=== PATIENT | female | born 1960 | race Caucasian/White ===

== ENCOUNTER 2016-08-14 08:46 | Emergency (ER) | payer OTHER ==
[~2016-08-14] VITALS: Ht 152.4 cm; Wt 99.8 kg
[~2016-08-14 08:46] MED LIST: ATORVASTATIN CA10 M1; AZITHROMYCIN250 M1 PO; CIPRODEX 0.3%-7.5 ML OTIC; FLONASE ALLERG9.9 ML NAS; GABAPENTIN600 M1 PO; IBUPROFEN600 M1 PO; LEVAQUIN500 M1 PO; MEDROL4 M2 PO; METFORMIN HCL1000 M1 PO; NASONEX0.05 MG/Ac NAS; PROAIR HFA8.5 GM INH; ROBITUSSIN W/CO10 ML PO; TESSALON PERLE100 M1 PO; VITAMIN B COMP1 EACH PO; ZITHROMAX Z-PA250 M1 PO; ZITHROMAX250 M2 PO
[2016-08-14 08:49] VITALS: BP 143/95
== END 2016-08-14 08:54 | disposition admitted as inpatient to this hospital (09) ==
LOC: CANPREER → ERH 08:46
DX: M25.562 Pain in left knee (principal)

== ENCOUNTER → 2018-01-24 | Day surgery (SDC) | payer OTHER ==
[2007-11-25 11:15] VITALS: BP 126/62
[~2018-01-24] MED LIST changes: +DELTASONE20 MG PO; +HYDROXYZINE HCL50 M1 PO; +PREDNISONE10 M2 PO
--- NOTE | 2018-01-24 10:28 | Operative Report ---
Operative/Inv Procedure Report Surgery Date: 01/24/18 Name of Procedure: Cataract extraction with intraocular lens implantation left eye Pre-Operative Diagnosis: Age-related cataract left eye Post-Operative Diagnosis: Same Estimated Blood Loss: none Surgeon/Drying Unit Felting Machine Operator: Elroy Ricardo MD Anesthesia: local monitored anesthesi Complications: None Operative/Procedure Note Note: Preoperatively the patient was noted to have 20/60 vision in the left eye . The risks, benefits, and alternatives to surgery were discussed at length with the patient. Informed consent was obtained. The patient was brought to the operating room where the left eye was prepped and draped in the normal sterile fashion. A speculum was placed on the left eye with good exposure. The axis of the limbal relaxing incision was marked. Using a jefferson blade at 600 depth, an incision spanning 45 degrees was made without complication. A limbal relaxing incision of equal length and depth was made 180 away. A stab incision was made using a paracentesis blade. Intracameral lidocaine was placed. Viscoelastic was used to form the anterior chamber. A clear corneal incision was made using keratome blade. A continuous curvilinear capsulorrhexis was made using a cystotome needle followed by Utrata forceps. There was no extension of the rhexis. Hydrodissection was performed using balanced salt solution. The cataract was removed using a stop and chop technique. Residual cortex was removed using coaxial irrigation and aspiration. The capsule was polished using irrigation and aspiration and the posterior capsule was cleaned using a balanced salt solution jet. There was no residual lens material inside the eye. The capsular bag was reformed using viscoelastic. An intraocular lens [id number] of power 25.5 was verified and confirmed. It was loaded into an injector and injected into the eye. The lens was placed entirely within the capsular bag. Viscoelastic was evacuated using irrigation and aspiration. The wounds were stromally hydrated and the eye filled to physiologic pressure using balanced salt solution. Intracameral cefuroxime was placed. Speculum was removed and a shield was placed on the eye. The patient was brought to the recovery area without incident. Instructions were given to follow-up the next day for routine postoperative care.
== END ==
LOC: STS 02:06
DX: H25.9 Unspecified age-related cataract (principal); E11.9 Type 2 diabetes mellitus without complications; Z79.84 Long term (current) use of oral hypoglycemic drugs; G47.33 Obstructive sleep apnea (adult) (pediatric); F17.200 Nicotine dependence, unspecified, uncomplicated
CPT/HCPCS: J2250; V2632

== ENCOUNTER 2018-01-27 11:29 | Emergency (ER) | payer OTHER ==
[~2018-01-27] VITALS: Ht 152.4 cm; Wt 98.0 kg
[~2018-01-27 11:29] MED LIST changes: -HYDROXYZINE HCL50 M1 PO; -PREDNISONE10 M2 PO
[2018-01-27 11:32] VITALS: BP 132/85
--- NOTE | 2018-01-27 12:03 | ED SKIN/ALLERGY COMPLAINT ---
History of Present Illness General Chief Complaint: Skin Rash/ Abcess Stated Complaint: RASH (SEEN HERE 01/25 FOR SAME) Source: patient Exam Limitations: no limitations Vital Signs & Intake/Output Vital Signs & Intake/Output Vital Signs Date Time Temp Pulse Resp B/P B/P Pulse O2 O2 Flow FiO2 Mean Ox Delivery Rate 01/27 1154 Room Air 01/27 1132 98.0 97 20 132/85 96 Room Air ED Intake and Output 01/28 0000 01/27 1200 Intake Total 0 Output Total Balance 0 Intake, Oral 0 Patient 216 lb Weight Weight Reported by Patient Measurement Method Allergies Coded Allergies: Penicillins (HIVES 08/14/16) Sulfa (Sulfonamide Antibiotics) ("I DONT KNOW" 01/25/18) Reconcile Medications Albuterol Sulfate (Proair Hfa) 8.5 GM HFA.AER.AD 2 PUF INH Q4-6 PRN PRN COPD (Reported) Atorvastatin Calcium (Unknown Strength) TABLET (Unknown Dose) UNKNOWN ( Reported) Azithromycin (Zithromax) 250 MG TABLET 1 DP PO AD BRONCHITIS 2 the first day followed by 1 for days 2-5 Azithromycin 250 MG TABLET 1 TAB PO AD otitis media TAKE 2 TABS ON DAY 1 TAKE 1 TAB ON DAYS 2-5 Benzonatate (Tessalon Perle) 100 MG CAPSULE 1 CAP PO TID PRN COUGH Benzonatate (Tessalon Perle) 100 MG CAPSULE 1 CAP PO TID COUGH Fluticasone Propionate (Flonase Allergy Relief) 9.9 ML SPRAY.SUSP 1 SPRAY KYLE BID PRN CONGESTION Gabapentin 600 MG TABLET 2 TAB PO TID NERVE PAIN (Reported) Hydroxyzine Hydrochloride (Atarax) 50 MG TAB 1 TAB PO TID PRN ITCHING Ibuprofen 600 MG TABLET 1 TAB PO TID PAIN with food Levofloxacin (Levaquin) 500 MG TABLET 1 TAB PO DAILY SINUSITIS/BRONCHITIS Metformin HCl 1,000 MG TABLET 1 TAB PO BID DIABETES (Reported) Methylprednisolone. (Medrol) 4 MG TAB.DS.PK 1 DP PO AD BRONCHITIS 6 on day 1 then reduce by one tablet daily until gone Methylprednisolone. (Medrol) 4 MG TAB.DS.PK 1 DP PO AD WHEEZING 6 on day 1 then reduce by one tablet daily until gone Prednisone 10 MG TABLET 1 DOSE PO ONCE RASH 6 TABS X 2 DAYS 5 TABS X 2 DAYS 4 TABS X 2 DAYS 3 TABS X 2 DAYS 2 TABS X 2 DAYS 1 TAB X 2 DAYS Prednisone (Deltasone) 20 MG TABLET 2 TAB PO DAILY rash Vitamin B Complex 1 EACH CAPSULE 1 CAP PO DAILY SUPPLEMENT (Reported) Triage Note: PT TO ED C/O CONTINUED RASH TO CHEST. WAS SEEN 2 DAYS AGO FOR SAME, WAS GIVEN RX'S. C/O FEELING HOT "I THINK I'M FREAKING MYSELF OUT". Triage Nurses Notes Reviewed? yes Onset: Abrupt Duration: day(s): (3-4), constant, continues in ED Timing: single episode today Severity: moderate, severe Location: torso Possible Factors: no cause identified No Modifying Factors: none Associated Symptoms: rash LMP (ages 10-50): post menopausal : No Patient currently breastfeeds: No HPI: 57 year old female with a history of diabetes presents for reevaluation of an itchy rash. Patient was seen here 2 days ago with a rash on her chest and neck. She was started on 40 mg of prednisone and told to take Benadryl. She started the prednisone 2 days ago and has been taking it as directed. She feels like there is been no improvement. She denies any swelling of the lips tongue or throat no difficulty breathing or difficulty swallowing. Past History Travel History Traveled to [place] past 21 day No Medical History Any Pertinent Medical History? 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 No Review of Systems Review of Systems Constitutional: Reports: no symptoms. EENTM: Reports: no symptoms. Respiratory: Reports: no symptoms. Cardiovascular: Reports: no symptoms. GI: Reports: no symptoms. Genitourinary: Reports: no symptoms. Musculoskeletal: Reports: no symptoms. Skin: Reports: see HPI, rash. Neurological/Psychological: Reports: no symptoms. Hematologic/Endocrine: Reports: no symptoms. Immunologic/Allergic: Reports: no symptoms. All Other Systems: Reviewed and Negative Physical Exam Physical Exam General Appearance: well developed/nourished, no apparent distress, alert, awake Head: atraumatic, normal appearance Eyes: Bilateral: normal appearance, PERRL, EOMI. Ears, Nose, Throat: normal pharynx, normal ENT inspection, hearing grossly normal Neck: normal inspection, supple, full range of motion, NO STRIDOR Respiratory: normal breath sounds, chest non-tender, no respiratory distress, lungs clear Cardiovascular: regular rate/rhythm, normal peripheral pulses Peripheral Pulses: 2+ radial (R), 2+ radial (L) Gastrointestinal: soft, non-tender Back: normal inspection, normal range of motion, no vertebral tenderness Extremities: normal inspection, normal range of motion, no edema Neurologic/Psych: no motor/sensory deficits, awake, alert, oriented x 3, normal gait, normal mood/affect Skin: intact, normal color, warm/dry Skin Problem Location: torso, NECK Skin Problem Character: THERE IS AN ERYTHEMATOUS MACULOPAPULAR SLIGHTLY RAISED RASH TO THE ANTERIOR SUPERIOR CHEST AND NECK. Lymphatic: no anterior cervical gabriela Progress Differential Diagnosis: abscess/cellulitis, allergic reaction, contact dermatitis, drug reaction, erythema multiforme, piyriasis rosea, scarlet fever, urticaria Plan of Care: Current Medications Sig/Vitor Start time Last Medication Dose Stop Time Status Admin Prednisone 20 MG ONCE ONE 01/27 1215 UNVr 01/28 1216 Patient is here for evaluation of a rash. She started 40 mg present 2 days ago without improvement. There is no swelling of the lips tongue or throat. No difficult breathing and difficult swallowing. Patient appears well. She was given additional 20 mg of prednisone for a total of 60 and then she was started on a taper. Also given a prescription for hydroxyzine. Advised to follow-up with a primary care doctor no evidence of anaphylaxis. Discussed return precautions patient agrees the plan Departure Departure Disposition: HOME OR SELF CARE Condition: Stable Clinical Impression Primary Impression: Allergic reaction Qualifiers: Encounter type: initial encounter Qualified Code: T78.40XA - Allergy, unspecified, initial encounter Referrals: Liz Betancourt APRN (PCP/Family) Additional Instructions: Stop taking the original dose of prednisone and start taking the prednisone taper. Use hydroxyzine every 8 hours as needed for itching. Pepcid or Zantac [id number] can also be used as directed. [place] for signs of infection like redness swelling discharge or pain. Also applY nystatin powder as directed. Make a follow-up with your primary care doctor within the next few days for recheck return with any concerns. Monitor your sugars as PREDNISONE will increase them. Departure Forms: Customer Survey General Discharge Information Prescriptions: Current Visit Scripts Prednisone 1 DOSE PO ONCE #1 DP 6 TABS X 2 DAYS 5 TABS X 2 DAYS 4 TABS X 2 DAYS 3 TABS X 2 DAYS 2 TABS X 2 DAYS 1 TAB X 2 DAYS Hydroxyzine Hydrochloride (Atarax) 1 TAB PO TID PRN ITCHING #30 TAB
[2018-01-27] MEDS ORDERED: HYDROXYZINE HCL50 M1 PO (12:04)
[2018-01-27] MEDS ORDERED: PREDNISONE10 M2 PO (12:04)
== END 2018-01-27 12:05 ==
LOC: ERH 11:29
DX: T78.40XA Allergy, unspecified, initial encounter (principal); R21 Rash and other nonspecific skin eruption; E11.9 Type 2 diabetes mellitus without complications; F17.210 Nicotine dependence, cigarettes, uncomplicated; J44.9 Chronic obstructive pulmonary disease, unspecified; Z79.84 Long term (current) use of oral hypoglycemic drugs

== ENCOUNTER 2018-02-05 11:15 | Emergency (ER) | payer OTHER ==
[~2018-02-05] VITALS: Ht 152.4 cm; Wt 93.9 kg
[~2018-02-05 11:15] MED LIST changes: +HYDROXYZINE HCL50 M1 PO; +PREDNISONE10 M2 PO
[2018-02-05 11:43] LABS: ABSOLUTE BASOPHIL COUNT 0.1 /CUMM (0.0-0.2); ABSOLUTE EOSINOPHIL COUNT 0.1 /CUMM (0.0-0.7); ABSOLUTE GRANULOCYTE CT 11.5 /CUMM (1.4-6.5); ABSOLUTE LYMPH COUNT 5.2 /CUMM (1.2-3.4); BASOPHIL % 0.6 % (0.0-2.0); EOSINOPHIL % 0.7 % (0-5); GRANULOCYTE % 64.1 % (42.2-75.2); HEMATOCRIT 52.3 % (37-47); MEAN CORPUSCULAR HGB 30.2 PG (27.0-31.0); MEAN CORPUSCULAR VOLUME 88.8 FL (81.0-99.0); MEAN PLATELET VOLUME 9.6 FL (7.4-10.4); PLATELET COUNT 211 /CUMM (130-400); RBC DISTRIBUTION WIDTH 12.6 % (11.5-14.5); RED BLOOD CELL CT 5.89 /CUMM (4.20-5.40); WHITE BLOOD CELL COUNT 17.9 /CUMM (4.8-10.8)
--- NOTE | 2018-02-05 12:47 | RADIOLOGY REPORT ---
EXAMINATION: XR CHEST CLINICAL INFORMATION: Cough, malaise, presyncope. COMPARISON: Chest done on 11/02/2015. TECHNIQUE: 2 views of the chest were obtained. FINDINGS: There is a 3 to 4 mm radiodensity seen projecting at right upper hemithorax, new since prior study, may represent an artifact, seen only on the frontal projection. Both lung red appear otherwise clear. The cardiomediastinal silhouette is within normal limit. There is no pleural effusion or pneumothorax present. Mild multilevel degenerative spondylosis is seen in the spine, unchanged. The visualized upper abdomen is unremarkable. IMPRESSION: New 3 to 4 mm radiodensity seen projecting at right upper hemithorax laterally, seen only on the frontal projection, may represent an artifact. Otherwise unremarkable.
--- NOTE | 2018-02-05 16:39 | ED GENERAL ADULT ---
History of Present Illness General Chief Complaint: General Adult Stated Complaint: ELEVATED BS,SINUS INFECTION,RASH Source: patient, family Exam Limitations: no limitations Vital Signs & Intake/Output Vital Signs & Intake/Output Vital Signs Date Time Temp Pulse Resp B/P B/P Pulse O2 O2 Flow FiO2 Mean Ox Delivery Rate 02/06 2124 98.0 88 18 137/70 97 Room Air 02/05 1832 79 18 133/75 94 Room Air 02/05 1628 97.9 88 18 130/73 94 Room Air 02/05 1606 98 Room Air 02/05 1123 97.3 87 18 139/83 96 Room Air Allergies Coded Allergies: Penicillins (HIVES 08/14/16) Sulfa (Sulfonamide Antibiotics) ("I DONT KNOW" 01/25/18) Reconcile Medications Albuterol Sulfate (Proair Hfa) 8.5 GM HFA.AER.AD 2 PUF INH Q4-6 PRN PRN COPD (Reported) Atorvastatin Calcium (Unknown Strength) TABLET (Unknown Dose) UNKNOWN ( Reported) Azithromycin (Zithromax) 250 MG TABLET 1 DP PO AD BRONCHITIS 2 the first day followed by 1 for days 2-5 Azithromycin 250 MG TABLET 1 TAB PO AD otitis media TAKE 2 TABS ON DAY 1 TAKE 1 TAB ON DAYS 2-5 Benzonatate (Tessalon Perle) 100 MG CAPSULE 1 CAP PO TID PRN COUGH Benzonatate (Tessalon Perle) 100 MG CAPSULE 1 CAP PO TID COUGH Doxycycline Hyclate 100 MG CAPSULE 1 CAP PO BID bronchitis Fluticasone Propionate (Flonase Allergy Relief) 9.9 ML SPRAY.SUSP 1 SPRAY KYLE BID PRN CONGESTION Gabapentin 600 MG TABLET 2 TAB PO TID NERVE PAIN (Reported) Hydroxyzine Hydrochloride (Atarax) 50 MG TAB 1 TAB PO TID PRN ITCHING Ibuprofen 600 MG TABLET 1 TAB PO TID PAIN with food Levofloxacin (Levaquin) 500 MG TABLET 1 TAB PO DAILY SINUSITIS/BRONCHITIS Metformin HCl 1,000 MG TABLET 1 TAB PO BID DIABETES (Reported) Methylprednisolone. (Medrol) 4 MG TAB.DS.PK 1 DP PO AD BRONCHITIS 6 on day 1 then reduce by one tablet daily until gone Methylprednisolone. (Medrol) 4 MG TAB.DS.PK 1 DP PO AD WHEEZING 6 on day 1 then reduce by one tablet daily until gone Prednisone 10 MG TABLET 1 DOSE PO ONCE RASH 6 TABS X 2 DAYS 5 TABS X 2 DAYS 4 TABS X 2 DAYS 3 TABS X 2 DAYS 2 TABS X 2 DAYS 1 TAB X 2 DAYS Prednisone (Deltasone) 20 MG TABLET 2 TAB PO DAILY rash Vitamin B Complex 1 EACH CAPSULE 1 CAP PO DAILY SUPPLEMENT (Reported) Triage Note: PT SENT IN BY PCP, LIZ FONSECA AND STATED THAT SHE WAS TOLD TO GO TO THE ER AND GET A CHEST XRAY, AND PT HAS RIGHT CLOGGED EAR AND SPUTUM IS GREEN. PT STATES THAT SHE FEELS LIKE SHE IS GOING TO PASS OUT. PT ALSO HAS AN ELEVATED BLOOD SUGAR OF 340. Triage Nurses Notes Reviewed? yes Onset: Abrupt HPI: Patient is a 57 yo female with a history of COPD and DM presents today for weakness and rash for two weeks. She recently had cataract surgery done two weeks ago and prior to that she had a rash develop on her chest. The rash has been constant since then and itches. She has treated it with prednisone and states that it has not helped. She also states that she feels weak like she is going to faint. This has also been present for two weeks. She does not feel like herself. She has no energy and nothing seems to be working, she has tried taking B12 and feels nothing from it. She has lost a few pounds in the last two weeks unintentionally. She also reports her left ear feeling clogged up like she went swimming but denies doing any activity in relation to that and that she has been coughing up green/yellow flem. There is also a fungal infection between the skin folds of her abdominal and pelvic area. Denies any fever, chills, nausea, vomiting, diarrhea, dizziness, headache, abdominal paain, or chest pain. (Johnny Mccord) Past History Travel History Traveled to [place] past 21 day No Medical History Any Pertinent Medical History? 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 No (Johnny Mccord) Review of Systems Review of Systems Constitutional: Reports: see HPI, weakness, unexplained weight loss. EENTM: Reports: see HPI. Respiratory: Reports: see HPI, cough. Cardiovascular: Reports: see HPI. GI: Reports: no symptoms, see HPI. Genitourinary: Reports: see HPI. Musculoskeletal: Reports: see HPI. Skin: Reports: see HPI, rash. Neurological/Psychological: Reports: see HPI. Hematologic/Endocrine: Reports: see HPI. Immunologic/Allergic: Reports: see HPI. All Other Systems: Reviewed and Negative (Johnny Mccord) Physical Exam Physical Exam General Appearance: well developed/nourished, no apparent distress, alert, awake Head: atraumatic, normal appearance Eyes: Bilateral: normal appearance, PERRL, EOMI. Ears, Nose, Throat: normal pharynx, normal ENT inspection, hearing grossly normal Neck: normal inspection, supple, full range of motion Respiratory: normal breath sounds, chest non-tender, no respiratory distress Cardiovascular: regular rate/rhythm Gastrointestinal: normal bowel sounds, soft, non-tender, no organomegaly Back: normal inspection, normal range of motion Extremities: normal inspection, normal capillary refill, normal range of motion, no edema Neurologic/Psych: no motor/sensory deficits, awake, alert, oriented x 3, normal gait, normal mood/affect Skin: intact, normal color, warm/dry, rash, maculopapaular erythematous rash on chest, erythema to folds of abdomen, Core Measures ACS in differential dx? No CVA/TIA Diagnosis: No Sepsis Present: No Sepsis Focused Exam Completed? No (Johnny Mccord) Progress Differential Diagnoses I considered the following diagnoses in my evaluation of the patient: Bronchitis, pneumonia, candidiasis, lung nodule, Plan of Care: Orders Procedure Date/time Status Add-on Test (ER Only) 02/05 2003 Active EKG 02/05 194 Active GLUCOSE 02/05 194 Complete TROPONIN LEVEL 02/05 1756 Complete EKG 02/05 175 Active MISTAKE 02/05 1127 Active FingerStick- Glucose 02/05 1127 Active URINALYSIS 02/05 1127 Complete TROPONIN LEVEL 02/05 1127 Complete COMPREHENSIVE METABOLIC PANEL 02/05 112 Complete CBC WITHOUT DIFFERENTIAL 02/05 112 Complete EKG 02/05 1125 Active Laboratory Tests 02/05/18 1945: Glucose 540 *H, Troponin I < 0.01 02/05/18 1140: Urine Color YEL, Urine Clarity HAZY H, Urine pH 6.0, Ur Specific [place] >= 1.030, Urine Protein 30 H, Urine Ketones TRACE H, Urine Nitrite NEG, Urine Bilirubin NEG@ICTO, Urine Urobilinogen 1.0, Ur Leukocyte Esterase NEG, Ur Microscopic SEDIMENT EXAMINED, Urine RBC RARE, Urine WBC 1-3 H, Ur Epithelial Cells FEW, Urine Bacteria FEW H, Hyaline Casts 1-3 H, Urine Hemoglobin NEG, Urine Glucose >=1000 H 02/05/18 1134: Anion Gap 10, Estimated GFR > 60, BUN/Creatinine Ratio 25.7 H, Glucose 389 H, Calcium 9.6, Total Bilirubin 1.0, AST 57 H, ALT 130 H, Alkaline Phosphatase 118, Troponin I < 0.01, Total Protein 7.6, Albumin 4.5, Globulin 3.1, Albumin/ Globulin Ratio 1.5, CBC w Diff MAN DIFF ORDERED, RBC 5.89 H, MCV 88.8, MCH 30.2 , MCHC 34.0, RDW 12.6, MPV 9.6, Gran % 64.1, Lymphocytes % 29.2, Monocytes % 5.4 , Eosinophils % 0.7, Basophils % 0.6, Absolute Granulocytes 11.5 H, Segmented Neutrophils 67, Absolute Lymphocytes 5.2 H, Lymphocytes 27, Monocytes 6, Absolute Monocytes 1.0 H, Absolute Eosinophils 0.1, Absolute Basophils 0.1, Platelet Estimate VERIFIED BY SMEAR, Normocytic RBCs VERIFIED, Normochromic RBCs VERIFIED Diagnostic Imaging: Viewed by Me: Radiology Read, CT Scan. Discussed w/RAD: Radiology Read, CT Scan. 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 Right upper lobe opacity. COMPARISON: Chest x-ray 02/05/2018 TECHNIQUE: Multidetector volumetric CT imaging of the chest was obtained after the administration of 95 mL of Optiray 320 intravenous contrast without immediate adverse reactions. Axial MIP volume rendering provided. Sagittal and coronal reformatted images were obtained. DLP: 361.16 mGy-cm FINDINGS: LUNGS: The lungs are clear with no evidence of inflammation or nodules. MEDIASTINUM: The mediastinum is normal. PLEURA: There is no pleural effusion. No pleural mass or thickening. AXILLA: No lymphadenopathy. UPPER ABDOMEN: Unremarkable. OSSEOUS STRUCTURES: Degenerative spondylosis spine multilevel disc height narrowing and plate spurring and facet joint arthrosis. COMPARISON: On the chest x-rays of there was a small radiopacity which is seen over the right upper chest. This is not present on the CT. The opacity in the chest x-ray is an artifact. IMPRESSION: Normal CT of the chest. DICTATED BY: Mike Washington MD DATE/TIME DICTATED:02/05/181738 [facility] CONSULTANT:DIMITRIS DATE/TIME TRANSCRIBED:1738 CONFIDENTIAL, DO NOT COPY WITHOUT APPROPRIATE AUTHORIZATION. < Electronically signed in Other Vendor System> SIGNED BY: Mike Washington MD [id number] Initial ED EKG: normal sinus rhythm, rate (79), nonspecific ST T wave chg Repeat EKG: unchanged (no significant changes) Comments: 02/05/18 Patient clinically looks well. In no apparent distress. She has been off of her diabetes medication. 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 Return if any other concerns. Patient was kept here for many hours and reevaluated multiple times. Repeat troponins negative. Repeat EKG is unremarkable. Heart score is a 2. Low risk. Stable for discharge. Follow-up with PCP. Patient needs better outpatient management with diabetes. Blood glucose level improved. Patient understands and agrees with plan of care (Johnny Mccord) Departure Departure Disposition: HOME OR SELF CARE Condition: Stable Clinical Impression Primary Impression: Bronchitis Secondary Impressions: Diabetes Referrals: Liz Fonseca APRN (PCP/Family) Additional Instructions: Taking doxycycline / albuterol as prescribed. Follow-up with your primary care doctor. Return if any concerns worsening symptoms. Please go over all results of today's visit with your primary care doctor. Contact your primary care doctor to let them know you were here in the emergency room. There may be nonspecific findings which may not be related to your visit today here in the emergency room but may require further evaluation and chronic monitoring by your primary care doctor. If you had a laceration today the chance of foreign body always remains. You should follow-up with your primary care doctor for recheck in 3-5 days for a wound check. If you had an x-ray done there is a chance that a fracture could have been missed on initial read and you should follow-up with your primary care doctor for repeat x-rays if symptoms persist. If your blood pressure was elevated here in the emergency room please have rechecked by [facility] primary care doctor within the next 48. If you were prescribed a narcotic here in the emergency room or any type of controlled substances you're not allowed to drive while taking this medication or operate any type of heavy machinery. Narcotics can make you feel lightheaded dizziness nausea and can cause constipation. 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 Thank you for choosing [facility] emergency room. Please return to the emergency room immediately if you have any other concerns worsening of symptoms. Departure Forms: Customer Survey General Discharge Information Prescriptions: Current Visit Scripts Doxycycline Hyclate 1 CAP PO BID #20 CAP (Johnny Mccord) PA/PUBLIC HEALTH SANITARIAN Co-Sign Statement Statement: ED Attending supervision documentation- [] I saw and evaluated the patient. I have also reviewed all the pertinent lab results and diagnostic results. I agree with the findings and the plan of care as documented in the PA's/PUBLIC HEALTH SANITARIAN's documentation. [x] I have reviewed the ED Record and agree with the PA's/PUBLIC HEALTH SANITARIAN's documentation. [] Additions or exceptions (if any) to the PAs/PUBLIC HEALTH SANITARIAN's note and plan are summarized below: [] (Joana MILLER,Hadley Mc) Critical Care Note Critical Care Note Critical Care Time: non-applicable (Johnny Mccord) ED Attending Observation Initial Observation Note: I have seen and personally examined ISIS REEDER on 02/08/18 at 1522. I agree with the current emergency department documentation. The disposition (admission or discharge) is uncertain at this time, she needs a period of observation for the following reason(s): The ED Nurse caring for this patient has been personally informed as to what the patient is being observed for. (Johnny Mccord)
--- NOTE | 2018-02-05 17:47 | CT SCAN REPORT ---
EXAMINATION: CT CHEST WITH CONTRAST CLINICAL INFORMATION: Cough. Right upper lobe opacity. COMPARISON: Chest x-ray 02/05/2018 TECHNIQUE: Multidetector volumetric CT imaging of the chest was obtained after the administration of 95 mL of Optiray 320 intravenous contrast without immediate adverse reactions. Axial MIP volume rendering provided. Sagittal and coronal reformatted images were obtained. DLP: 361.16 mGy-cm FINDINGS: LUNGS: The lungs are clear with no evidence of inflammation or nodules. MEDIASTINUM: The mediastinum is normal. PLEURA: There is no pleural effusion. No pleural mass or thickening. AXILLA: No lymphadenopathy. UPPER ABDOMEN: Unremarkable. OSSEOUS STRUCTURES: Degenerative spondylosis spine multilevel disc height narrowing and plate spurring and facet joint arthrosis. COMPARISON: On the chest x-rays of 02/05/2018 there was a small radiopacity which is seen over the right upper chest. This is not present on the CT. The opacity in the chest x-ray is an artifact. IMPRESSION: Normal CT of the chest.
[2018-02-05 21:24] VITALS: BP 137/70
[2018-02-05] MEDS ORDERED: DOXYCYCLINE HY100 M2 PO (22:47)
== END 2018-02-05 23:19 ==
LOC: ERH 11:15
PROVIDERS: Physician Assistant
DX: J40 Bronchitis, not specified as acute or chronic (principal); E11.9 Type 2 diabetes mellitus without complications; F17.210 Nicotine dependence, cigarettes, uncomplicated
CPT/HCPCS: 71046; 81001; 93005; 93010; 96374; J1815